=== PATIENT | female | born 1995 | race African-American/Black ===

== ENCOUNTER 2021-08-18 21:39 | Emergency (ER) | payer OTHER, SELFPAY ==
--- NOTE | 2021-08-18 21:39 | NUR ---
Patient to ER bed 4 to gown for evaluation. Side rails up. Report given to January.
[2021-08-18 21:49] VITALS: BP_SYST 112
--- NOTE | 2021-08-18 21:54 | NUR ---
Patient BIB by family from home. C/O abdominal pain, nausea and vomitting x 2 days. Patient reported, had abdominal pain, nausea, vomitting and lac of appetite for 2 days, Hx SLE and Sickle Cell
--- NOTE | 2021-08-18 22:21 | NUR ---
ER Dr. Diego at bedside examining patient.
[2021-08-18] MEDS ORDERED: ONDANSETRON 4 MG ODT TAB PO ONE (22:30)
[2021-08-18] MEDS ORDERED: MORPHINE 2 MG/ML INJ. SYRINGE IM ONE (22:30)
[2021-08-18] MEDS ORDERED: NACL 0.9% 1,000 ML IV ONE (22:30)
[2021-08-18] MEDS ORDERED: MORPHINE 2 MG/ML INJ. SYRINGE IVP ONE (22:30)
[2021-08-18 22:58] LABS: BILIRUBIN,URINE NEGATIVE (NEGATIVE); BLOOD, URINE NEGATIVE (NEGATIVE); COLOR,URINE YELLOW (YELLOW); GLUCOSE,URINE NEGATIVE (NEGATIVE); KETONES,URINE TRACE (NEGATIVE); LEUKOCYTE ESTERASE ,URINE NEGATIVE (NEGATIVE); NITRITE, URINE NEGATIVE (NEGATIVE); PROTEIN URINE NEGATIVE (NEGATIVE); UROBILINOGEN,URINE 0.2 (0.2-1.0)
[2021-08-18 23:14] LABS: CLARITY/URINE HAZY (CLEAR)
--- NOTE | 2021-08-18 23:14 | NUR ---
3 Attempt to start IV line, not success, Dr. Diego notified.
--- NOTE | 2021-08-18 23:30 | NUR ---
Patient medicated as ordered w/ 2mg morphine im and zofran 4mg odt. Will observe for any adverse reaction. Bed to low position sr up. x2 attempts for iv h.l. unsuccessful. notified for possible IJ insertion or central line.
--- NOTE | 2021-08-19 01:12 | NUR ---
Patient reported, started abdominal pain again, Dr. Diego notified.
--- NOTE | 2021-08-19 02:30 | NUR ---
Central line placement right groin area by Dr. Diego, Patient tolerated well.
[2021-08-19] MEDS ORDERED: KETOROLAC TROMETHAMINE 30 MG VIAL ONE (02:48)
--- NOTE | 2021-08-19 02:51 | NUR ---
Patient reported, Allergy Ketorolac
[2021-08-19] MEDS ORDERED: KETOROLAC TROMETHAMINE 30 MG VIAL IVP ONE (03:00)
--- NOTE | 2021-08-19 03:10 | NUR ---
Blood drawn and sent to lab. (lab reported, first blood hemolysis)
--- NOTE | 2021-08-19 03:24 | NUR ---
Update allergy medications and Dr. Diego notified.
[2021-08-19 03:31] LABS: BASOPHILS % (AUTO) 0.6 % (0.0-2.0); EOSINOPHILS % (AUTO) 0.1 % (0.0-4.0); HEMATOCRIT 31.5 % (36-48); LYMPHOCYTES # (AUTO) 1.6 K/uL (1.0-5.5); LYMPHOCYTES % (AUTO) 31.7 % (20.5-51.5); MEAN CORPUSCULAR HEMOGLOBIN 21 pg (27-31); MEAN CORPUSCULAR HGB CONC 32 % (32-36); MEAN CORPUSCULAR VOLUME 67 fL (79.0-98.0); MONOCYTES # (AUTO) 0.6 K/uL (0.0-1.0); MONOCYTES % (AUTO) 12.8 % (1.7-9.3); NEUTROPHILS # (AUTO) 2.7 K/uL (1.8-7.7); NEUTROPHILS % (AUTO) 54.8 % (40.0-70.0); PLATELET COUNT (AUTO) 303 K/uL (130-430); RED BLOOD CELL COUNT(AUTO) 4.73 MIL/uL (4.2-6.2); RED CELL DISTRIBUTION WIDTH 21.3 % (9.0-15.0); RETICULOCYTE COUNT 0.8 % (0.5-1.5)
[2021-08-19 03:36] LABS: ALBUMIN 3.3 g/dL (3.4-4.8); CALCIUM 8.4 mg/dL (8.4-11.0); CREATININE 0.8 mg/dL (0.55-1.30); POTASSIUM 4.2 mmol/L (3.5-5.1)
[2021-08-19 03:38] LABS: TOTAL BILIRUBIN 0.3 mg/dL (0.0-1.0)
--- NOTE | 2021-08-19 04:33 | NUR ---
Patient request pain medication for abdominal pain, Dr. Diego notified.
--- NOTE | 2021-08-19 05:33 | NUR ---
Patient refused to stay and request to D/C, Dr. Diego notified.
--- NOTE | 2021-08-19 05:40 | NUR ---
D/C Central line and cathether intact, applied pressure dressing , asked patient to wait for 10 minutes for observation, Patient refused to wait for 10 minutes.
[2021-08-19 05:54] VITALS: BP_SYST 112
--- NOTE | 2021-08-19 05:54 | NUR ---
Patient D/C without sign D/C paper.
[2021-08-19] MEDS ORDERED: MORPHINE 2 MG/ML INJ. SYRINGE IVP ONE (06:00)
== END 2021-08-19 05:54 | disposition home or self-care (01) ==
LOC: SED 21:39
DX: R10.9 Unspecified abdominal pain (principal); Z88.0 Allergy status to penicillin; Z88.1 Allergy status to other antibiotic agents; Z88.5 Allergy status to narcotic agent; Z88.8 Allergy status to other drugs, medicaments and biological substances; Z20.822 Contact with and (suspected) exposure to COVID-19
CPT/HCPCS: 36415; 36556; 80053; 81003; 81025; 84703; 85025; 85044; 87426; 93005; 96360; 96372; 99285; J1885; J2270; J7030